=== PATIENT | male | born 1945 | race Caucasian/White ===

== ENCOUNTER 2016-12-18 08:05 | Emergency (ER) | payer BC, MEDICARE, OTHER ==
[2016-12-18] MEDS ORDERED: Sodium Chloride 0.9% 1,000 ML IV SCH ×2 (08:45→09:00)
[2016-12-18] MEDS ORDERED: Acetaminophen 1,000 MG in Premix Bag 1 BAG IV ONE (10:01)
[2016-12-18 11:00] VITALS: BP 147/76
--- NOTE | 2016-12-20 11:24 | CR ---
INDICATION: COPD, fall onto back, no rib injury. CHEST: AP and lateral views of the chest 12/18/2016, no comparisons. The heart appears enlarged. The aorta is tortuous with calcification in the arch. Tiny nodules are noted perihilar bilaterally, compatible with previous granulomatous disease. No definite active infiltrate or effusion was identified. Slight flattening of diaphragm leaves on the lateral view suggests the possibility of COPD but should be correlated clinically. Bony structures appear to be grossly intact. IMPRESSION: No acute process. MTDD
--- NOTE | 2016-12-21 10:51 | ER ---
DATE SEEN: 12/18/2016 HISTORY OF PRESENT ILLNESS: This 71-year-old man went to work at [employer]. 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 As he was walking in, he was caught on the camera carrying his lunch pail and his foot stepped on a mat. The mat was on oil or wet surface. The mat slipped, and he fell on his back, traumatized his sacrum and his occiput. No loss of consciousness. Brief paresis in the upper extremities. He felt a shock-like sensation in both upper arms. The patient stopped smoking in 2001. He had 20 or 30 pack-years of smoking. The patient did not lose consciousness when he fell down, but he felt the shock- like sensation that radiated to his arms, and then relented within seconds. He walked in. PAST MEDICAL HISTORY: 1. Hypothyroidism, treated. 2. Chronic obstructive lung disease. PAST SURGICAL HISTORY: Right cataract, right pterygium, low back surgery, and hemorrhoid surgery (looking at the CAT scan there was no suggestion of any back surgery, but perhaps he has had it. There is a vacuum sign between 4 and 5, so it is possible there is something that he had surgery on). I do not see an incision. ALLERGIES: None. MEDICATIONS: 1. Levothyroxine. 2. Albuterol. 3. Simvastatin. PHYSICAL EXAMINATION: VITAL SIGNS: Blood pressure 189/107 and this came down later to 147/76, heart rate 66, which dropped down to 52, when he was resting, respirations 20, and oxygen saturation 94%. He does better sitting up at a 45- degree angle with elevation of the head of the bed. When he lies down, he becomes more dyspneic/has more audible musical, but quiet sonorous rales. CONSTITUTIONAL: The patient is well-dressed, shaved, tanned, and markedly obese. He has marked fullness of his face. HEENT: Right side of his face has actinic keratosis changes on the lateral side of the face below the TMJ to the angle of the jaw. These have sort of brownish characteristics. He has trace bluish lips. Pharynx without abnormality. Teeth in reasonably good repair. Gag in place. Uvula midline. Tongue is midline. Speech appropriate. NECK: No bruits. No thyromegaly or masses in the neck. He has a cervical collar in place. This is difficult for him because he feels like it is "choking" him, but he is able to breathe reasonably well. Once the cervical spine was cleared, the collar was removed. The cervical spine was palpated and no evidence for abnormality or tenderness. LUNGS: Coarse musical expiratory and inspiratory wheezes. They are mild and not high pitched. No rales. No rhonchi. CARDIAC: S1 and S2. No murmur. Chest is nontender to palpation, except for the right posterior lateral infrascapular muscles (serratus and posterior) and latissimus dorsi. No crepitus or changes or palpable pain of the supraspinous or infraspinous processes or muscles. Right shoulder nontender. The right trapezius is moderately tender. No spinous process tenderness of the cervical spine. Range of motion of the cervical spine is normal, except with limitations of large, thick, heavy neck. ABDOMEN: Soft. No hepatosplenomegaly. No guarding. It is difficult to palpate him because he has increased abdominal girth and fullness in the abdomen. No hernias demonstrated. GENITALIA: Negative. EXTREMITIES: Lower extremities without abnormality. No tenderness. Straight leg raise not performed, but he is able to flex his hips and knees without difficulty. NEUROLOGIC: Deep tendon reflexes upper extremities and lower extremities intact, except for absent knee jerks. Cranial nerves 2 through 12 intact. Slight decreased hearing. Oriented x3. Gait appropriate. MUSCULOSKELETAL: Palpation spinous process, moderate tenderness right sacroiliac joint. Mild lumbosacral discomfort. No spinous process tenderness in the cervical, thoracic, or lumbar spine. LABORATORY DATA: CT demonstrated degenerative changes. At one point, there was concern for potential L4 spinous process fracture. However, it is not fractured. It was reviewed with the radiologist. He did note there was some concern about apophyseal changes. Second radiologist read them and felt there were degenerative apophyseal changes. Chest x-ray is negative. He has moderate cardiomegaly. Additional comments: On palpation of the scalp, he has a modest area of, slightly right of midline, occipital swelling without abrasion or laceration. ASSESSMENT: 1. Head trauma with concussion. 2. Superficial right lateral to midline occipitoparietal hematoma secondary to contusion. 3. Massive obesity, 230 pounds. 4. Cardiomegaly. 5. Right trapezial and upper rhomboid myalgia. 6. Old smoker, stopped in 2001. 7. Previous right cataract surgery, pterygium surgery excision. 8. Hemorrhoidal surgery. 9. Hypothyroidism, treated. 10.Dyslipidemia, treated. 11.Low back strain. 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 PLAN: The patient is given a prescription for Robaxin 750 mg q.i.d., 60 tablets, one p.r.n. spasm. Followup with his doctor in a week. /[id number] [facility]/[place] [facility]NELLY
== END 2016-12-18 11:00 | disposition home or self-care (01) ==
LOC: FB.ED 08:05
DX: S06.0X0A Concussion without loss of consciousness, initial encounter (principal); I51.7 Cardiomegaly; S39.012A Strain of muscle, fascia and tendon of lower back, initial encounter; M79.1 Myalgia; J44.9 Chronic obstructive pulmonary disease, unspecified; Z87.891 Personal history of nicotine dependence; Z98.890 Other specified postprocedural states; W18.49XA Other slipping, tripping and stumbling without falling, initial encounter
CPT/HCPCS: 36415; 70450; 71020; 72125; 72131; 80053; 85025; 93005; 96361; 96374; 99284; J0131; J7040

== ENCOUNTER 2021-08-06 12:16 | Emergency (ER) | payer BC, MEDICARE ==
[2021-08-06 15:09] VITALS: BP 181/71; PULSE 45
== END 2021-08-06 14:37 | disposition home or self-care (01) ==
LOC: FB.ED 12:16
DX: H81.10 Benign paroxysmal vertigo, unspecified ear (principal); J44.9 Chronic obstructive pulmonary disease, unspecified; R94.6 Abnormal results of thyroid function studies; E78.00 Pure hypercholesterolemia, unspecified; E03.9 Hypothyroidism, unspecified; Z91.09 Other allergy status, other than to drugs and biological substances; Z79.899 Other long term (current) drug therapy
CPT/HCPCS: 36415; 80048; 81001; 84443; 84484; 85027; 99282; 99283

== ENCOUNTER 2022-04-10 17:32 | Emergency (ER) | payer MEDICARE ==
[2022-04-10 18:34] LABS: ESTIMATED GFR 39 mL/min (>60)
[2022-04-10] MEDS ORDERED: Magnesium Hydroxide 400 MG/5 ML Susp 30 ML Cup PO ONE (18:48)
[2022-04-10 19:44] VITALS: BP 145/81; PULSE 62
[2022-04-10 19:45] LABS: CORONAVIRUS COVID-19 NAA NEGATIVE (NEGATIVE)
== END 2022-04-10 19:37 | disposition home or self-care (01) ==
LOC: FB.ED 17:32
DX: K59.00 Constipation, unspecified (principal); E66.01 Morbid (severe) obesity due to excess calories; Z68.41 Body mass index [BMI] 40.0-44.9, adult; I10 Essential (primary) hypertension; E78.00 Pure hypercholesterolemia, unspecified; E03.9 Hypothyroidism, unspecified; Z20.822 Contact with and (suspected) exposure to COVID-19; Z91.09 Other allergy status, other than to drugs and biological substances
CPT/HCPCS: 0241U; 36415; 74018; 80053; 81001; 85025; 86140; 99282; 99284; A9270-GY

== ENCOUNTER 2022-05-25 07:03 | Day surgery (SDC) | payer MEDICARE, OTHER ==
[2022-05-25] MEDS ORDERED: Labetalol 100 MG/20 ML MDV IV ONE (07:04)
[2022-05-25] MEDS ORDERED: Propofol 200 MG/20 ML SDV IV ONE (07:04)
[2022-05-25] MEDS ORDERED: Sodium Chloride 0.9% 10 ML Syringe FLUSH PRN (07:15)
[2022-05-25] MEDS: Lactated Ringers 1,000 ML IV SCH (08:17)
[2022-05-25] MEDS ORDERED: Albuterol/Ipratropium 3.0-0.5 MG/3 ML Neb Soln NEB PRN (08:21)
[2022-05-25] MEDS: Albuterol/Ipratropium 3.0-0.5 MG/3 ML Neb Soln ONE (08:26)
[2022-05-25 12:12] VITALS: BP 146/83; PULSE 69
== END 2022-05-25 10:06 | disposition home or self-care (01) ==
LOC: FB.SDS 07:03
PROVIDERS: ATTEND Surgery
DX: K57.30 Diverticulosis of large intestine without perforation or abscess without bleeding (principal); I12.9 Hypertensive chronic kidney disease with stage 1 through stage 4 chronic kidney disease, or unspecified chronic kidney disease; N18.30 Chronic kidney disease, stage 3 unspecified; E03.8 Other specified hypothyroidism; G47.33 Obstructive sleep apnea (adult) (pediatric); J44.9 Chronic obstructive pulmonary disease, unspecified; E66.01 Morbid (severe) obesity due to excess calories; Z79.899 Other long term (current) drug therapy; Z87.891 Personal history of nicotine dependence; Z68.41 Body mass index [BMI] 40.0-44.9, adult
CPT/HCPCS: 00811; 45378; J2704; J3490; J7120; J7620

== ENCOUNTER 2023-02-04 17:26 | Emergency (ER) | payer MEDICARE, OTHER ==
[2023-02-04 19:17] VITALS: BP 125/62; PULSE 62
== END 2023-02-04 18:52 | disposition home or self-care (01) ==
LOC: FB.ED 17:26
DX: I71.43 Infrarenal abdominal aortic aneurysm, without rupture (principal); I12.9 Hypertensive chronic kidney disease with stage 1 through stage 4 chronic kidney disease, or unspecified chronic kidney disease; N18.9 Chronic kidney disease, unspecified; E78.00 Pure hypercholesterolemia, unspecified; J44.9 Chronic obstructive pulmonary disease, unspecified; E03.9 Hypothyroidism, unspecified; Z79.899 Other long term (current) drug therapy; Z88.1 Allergy status to other antibiotic agents; Z88.8 Allergy status to other drugs, medicaments and biological substances
CPT/HCPCS: 99283

== ENCOUNTER 2024-07-24 01:58 | Emergency (ER) | payer OTHER, MEDICARE ==
[2024-07-24] MEDS: Cyclobenzaprine 10 MG Tab PO ONE (02:26)
[2024-07-24] MEDS: methylPREDNISolone Sodium Succinate 125 MG/2 ML SDV IM ONE (02:27)
[2024-07-24 02:40] VITALS: BP 135/70; PULSE 71
== END 2024-07-24 02:42 | disposition home or self-care (01) ==
LOC: FB.ED 01:58
DX: S46.811A Strain of other muscles, fascia and tendons at shoulder and upper arm level, right arm, initial encounter (principal); I10 Essential (primary) hypertension; E78.00 Pure hypercholesterolemia, unspecified; J44.9 Chronic obstructive pulmonary disease, unspecified; Z95.5 Presence of coronary angioplasty implant and graft; E03.9 Hypothyroidism, unspecified; Z91.048 Other nonmedicinal substance allergy status; Z88.8 Allergy status to other drugs, medicaments and biological substances; Z79.890 Hormone replacement therapy; X58.XXXA Exposure to other specified factors, initial encounter; Y93.89 Activity, other specified
CPT/HCPCS: 96372; 99283; A9270-GY; J2919

== ENCOUNTER 2024-09-07 06:12 | Emergency (ER) | payer OTHER, MEDICARE ==
[2024-09-07 06:46] VITALS: BP 146/89; PULSE 62
[2024-09-07 06:51] LABS: BASOPHILS ABSOLUTE AUTO 0.1 x10-3/uL (0.0-0.3); BASOPHILS PERCENT AUTO 1.2 % (0.3-3.8); EOSINOPHILS ABSOLUTE AUTO 0.2 x10-3/uL (0.0-0.6); EOSINOPHILS PERCENT AUTO 3.5 % (0.1-6.8); HEMATOCRIT 41.3 % (38.3-50.1); HEMOGLOBIN 13.7 g/dL (12.9-17.7); LYMPHOCYTES ABSOLUTE AUTO 0.4 x10-3/uL (0.5-4.5); LYMPHOCYTES PERCENT AUTO 7.9 % (15.8-45.3); MEAN CORPUSCULAR HEMOGLOBIN 27.6 pg (27.0-33.3); MEAN CORPUSCULAR HGB CONC 33.2 g/dL (28.7-35.3); MEAN PLATELET VOLUME 8.5 fL (6.7-11.0); MONOCYTES ABSOLUTE AUTO 0.6 x10-3/uL (0.0-1.2); MONOCYTES PERCENT AUTO 12.2 % (5.5-15.2); NEUTROPHILS PERCENT AUTO 75.2 % (40.3-71.8); PLATELET COUNT,PLT 148 x10(3)uL (117-477); RED BLOOD CELL COUNT 4.97 x10(6)uL (3.90-5.90); RED CELL DISTRIBUTION WIDTH 14.7 % (12.4-15.0); WHITE BLOOD CELL COUNT,WBC 5.3 x10-3/uL (3.2-10.1)
[2024-09-07 07:04] LABS: A/G RATIO 1.1; ALANINE AMINOTRANSFERASE,ALT 25 U/L (12-36); ALBUMIN 3.6 g/dL (3.2-4.6); ALKALINE PHOSPHATASE 61 IU/L (56-112); ASPARTATE AMNIOTRANSFERASE,AST 12 IU/L (5-25); BILIRUBIN TOTAL 0.5 mg/dL (0.1-1.3); BLOOD UREA NITROGEN,BUN 18 mg/dL (7-18); BUN/CREATININE RATIO 6.9 (9-20); CALCIUM 8.9 mg/dL (8.6-10.2); CARBON DIOXIDE,CO2 27 mmol/L (21-32); CHLORIDE,CL 105 mmol/L (100-110); ESTIMATED GFR 24 mL/min (>60); GLUCOSE RANDOM 127 mg/dL (80-116); PROTEIN TOTAL,TP 6.8 g/dL (6.0-8.0); SODIUM,NA 138 mmol/L (135-145)
[2024-09-07] MEDS: Alum Hydroxide/Mag Hydroxide 15 ML, Lidocaine 2% 15 ML PO ONE (07:05)
[2024-09-07 07:09] LABS: TROPONIN I 56.2 pg/mL (4.0-60.3)
[2024-09-07 07:10] LABS: CREATININE 2.6 mg/dL (0.70-1.30)
== END 2024-09-07 08:15 | disposition home or self-care (01) ==
LOC: FB.ED 06:12
DX: K21.9 Gastro-esophageal reflux disease without esophagitis (principal); I12.9 Hypertensive chronic kidney disease with stage 1 through stage 4 chronic kidney disease, or unspecified chronic kidney disease; E78.00 Pure hypercholesterolemia, unspecified; E03.9 Hypothyroidism, unspecified; J44.9 Chronic obstructive pulmonary disease, unspecified; N18.9 Chronic kidney disease, unspecified; Z88.8 Allergy status to other drugs, medicaments and biological substances; Z79.899 Other long term (current) drug therapy; Z79.890 Hormone replacement therapy; Z79.51 Long term (current) use of inhaled steroids
CPT/HCPCS: 36415; 71045; 80053; 83880; 84484; 85025; 93005; 99285; A9270